=== PATIENT | female | born 1985 | race Two or more races ===

== ENCOUNTER 2017-02-16 14:52 | Emergency (ER) | payer MEDICAID, OTHER ==
[~2017-02-16] VITALS: Ht 154.9 cm; Wt 49.9 kg
--- NOTE | 2017-02-16 14:57 | NUR ---
Gideon crawford in ED - 02/16/17 at 1519 by MARY JO BILATERAL LOWER EXTREMITY EDEMA X 1 WEEK LOWER ABD PAIN DUE TO UTERINE CA STARTED MENSTRUAL CYCLE TODAY
--- NOTE | 2017-02-16 14:57 | NUR ---
BBRA 85 FROM WORK FOR N/V TODAY, STATES ABD PAIN STARTED MENSTRUAL CYCLE TODAY
[2017-02-16 15:14] LABS: BASOPHILS # (AUTO) 0.1 /CMM (0.0-0.2); BASOPHILS % (AUTO) 0.7 % (0.0-2.0); EOSINOPHILS # (AUTO) 0.1 /CMM (0.0-0.7); EOSINOPHILS % (AUTO) 1.5 % (0.0-6.0); HEMATOCRIT 39 % (33-45); HEMOGLOBIN 13.2 g/dL (11.5-14.8); LYMPHOCYTES # (AUTO) 2.1 /CMM (0.8-4.8); LYMPHOCYTES % (AUTO) 26.8 % (20.0-44.0); MEAN CORPUSCULAR HEMOGLOBIN 31 PG (26.0-33.0); MEAN CORPUSCULAR HGB CONC 34 g/dl (31.0-36.0); MEAN CORPUSCULAR VOLUME 92 fL (82-100); MONOCYTES # (AUTO) 0.6 /CMM (0.1-1.30); PLATELET COUNT (AUTO) 267 /CMM (150-450); RED BLOOD CELL COUNT(AUTO) 4.26 MIL/uL (4.0-5.2); WHITE BLOOD COUNT (AUTO) 7.9 K/uL (4.3-11.0)
[2017-02-16 15:21] LABS: CALCIUM, SERUM 8.9 mg/dL (8.5-10.1); CREATININE 0.7 mg/dL (0.6-1.3); POTASSIUM 3.2 mmol/L (3.5-5.1)
[2017-02-16 15:26] LABS: APPEARANCE,URINE Turbid (CLEAR); BILIRUBIN,URINE SMALL (NEGATIVE); BLOOD, URINE Large Ery/uL (NEGATIVE); KETONES,URINE 15 (NEGATIVE); LEUKOCYTE ESTERASE ,URINE Trace (NEGATIVE); NITRITE, URINE Negative (NEGATIVE); PH,URINE 6.5 (5.0-8.0); PROTEIN,URINE 100 mg/dl (NEGATIVE); UGLUCOSE Negative (NEGATIVE)
[2017-02-16 15:27] LABS: COLOR,URINE Dark Yellow (YELLOW)
[2017-02-16 15:28] LABS: ALBUMIN 4.1 g/dL (3.4-5.0); BILIRUBIN,DIRECT 0.1 mg/dL (0.0-0.2); BILIRUBIN,TOTAL 0.3 mg/dL (0.2-1.0); TOTAL PROTEIN, SERUM 7.2 g/dL (6.4-8.2)
[2017-02-16 15:35] LABS: RBC,URINE 80-100 /HPF (0-2)
[2017-02-16 15:36] LABS: BACTERIA,URINE None seen /HPF (None Seen); SQUAMOUS EPITHELIAL CELL,UR Few /HPF (None Seen)
--- NOTE | 2017-02-16 16:56 | NUR ---
Patient discharged to home in stable condition. Written and verbal after care instructions given. Patient verbalizes understanding of instruction.
--- NOTE | 2017-02-16 16:56 | NUR ---
IV removed. Catheter intact and site benign. Pressure and 4x4 applied to site. No bleeding noted.
[2017-02-16 16:57] VITALS: BP 120/60
== END 2017-02-16 16:57 | disposition home or self-care (01) ==
LOC: ER 14:55
DX: N94.6 Dysmenorrhea, unspecified (principal); E87.6 Hypokalemia; E86.0 Dehydration; Z90.89 Acquired absence of other organs
CPT/HCPCS: 36415; 80048; 80076; 81001; 83690; 84703; 85025; 96361; 96374; 96375; 99284; A4606; J1885; J2405; J7030; Z7610; 81000-TC

== ENCOUNTER 2017-04-01 23:09 | Emergency (ER) | payer MEDICAID ==
[~2017-04-01] VITALS: Ht 154.9 cm; Wt 49.9 kg
[2017-04-01 23:10] VITALS: BP 111/70
[2017-04-02] MEDS ORDERED: TETRACAINE HCL/PF 0.5% UD 2 ML BOTTLE ONE (00:54)
[2017-04-02] MEDS ORDERED: FLUORESCEIN SODIUM OPHTH 1 EA STRIP ONE (00:54)
--- NOTE | 2017-04-02 00:57 | NUR ---
PT AMBULATORY TO ER BED 7, PT BIB SELF C/O BILAT EYES BURNING X 3 DAYS. PT DENIES ANY TRAUMA. VSS/RESP EVEN UNLABORED/NAD NOTED. MD AT BEDSIDE FOR EVAL.
[2017-04-02] MEDS ORDERED: TETRACAINE HCL/PF 0.5% UD 2 ML BOTTLE OP ONE (01:00)
[2017-04-02] MEDS ORDERED: FLUORESCEIN SODIUM OPHTH 1 EA STRIP OP ONE (01:00)
== END 2017-04-02 03:19 | disposition home or self-care (01) ==
LOC: ER 23:11
DX: S05.01XA Injury of conjunctiva and corneal abrasion without foreign body, right eye, initial encounter (principal); H01.003 Unspecified blepharitis right eye, unspecified eyelid; X58.XXXA Exposure to other specified factors, initial encounter; Y93.89 Activity, other specified; Y92.89 Other specified places as the place of occurrence of the external cause; Y99.8 Other external cause status
CPT/HCPCS: 99283; A4606; Z7610

== ENCOUNTER 2017-05-30 16:00 | Emergency (ER) | payer MEDICAID ==
[~2017-05-30] VITALS: Ht 157.5 cm; Wt 54.4 kg
--- NOTE | 2017-05-30 16:30 | NUR ---
BIB FAMILY C/O OF HEADACHE X3 DAY, WORST TODAY, NAD NOTED, VSS, RESP EVEN AND UNLABORED, PT PUT ON HOSPITAL GOWN AND MONITOR. WAITING FOR MD LEVINE.
[2017-05-30 18:13] VITALS: BP 114/66
--- NOTE | 2017-05-30 18:14 | NUR ---
Patient discharged to home in stable condition. Written and verbal after care instructions given. Patient verbalizes understanding of instruction. Prescription given.
== END 2017-05-30 18:15 | disposition home or self-care (01) ==
LOC: ER 16:03
DX: R51 Headache (principal)
CPT/HCPCS: 70450; 84703; 99284; A4606; Z7610

== ENCOUNTER 2017-07-06 21:51 | Emergency (ER) | payer MEDICAID ==
[~2017-07-06] VITALS: Ht 154.9 cm; Wt 49.9 kg
[2017-07-06 22:01] VITALS: BP 100/62
== END 2017-07-07 01:13 | disposition home or self-care (01) ==
LOC: ER 21:55
DX: R59.0 Localized enlarged lymph nodes (principal); Z90.89 Acquired absence of other organs
CPT/HCPCS: 99282; A4606; Z7610

== ENCOUNTER 2019-02-23 01:51 | Emergency (ER) | payer MEDICAID ==
[~2019-02-23] VITALS: Ht 154.9 cm; Wt 49.9 kg
[2019-02-23 01:55] VITALS: BP 124/68
--- NOTE | 2019-02-23 02:20 | NUR ---
Patient discharged to home in stable condition. Written and verbal after care instructions given. Patient verbalizes understanding of instruction. Pt ambulatory with a steady gait
== END 2019-02-23 02:22 | disposition home or self-care (01) ==
LOC: ER 01:57
DX: L50.9 Urticaria, unspecified (principal); F43.9 Reaction to severe stress, unspecified; Z90.89 Acquired absence of other organs

== ENCOUNTER 2022-08-02 22:43 | Emergency (ER) | payer MEDICAID ==
[~2022-08-02] VITALS: Ht 154.9 cm; Wt 49.9 kg
[2022-08-02 23:13] VITALS: BP 109/55
== END 2022-08-02 23:59 | disposition home or self-care (01) ==
LOC: ER 22:49
DX: Z00.00 Encounter for general adult medical examination without abnormal findings (principal)